=== PATIENT | male | born 1960 ===

== ENCOUNTER 2025-02-26 14:10 | Outpatient (CLI) | payer OTHER, SELFPAY ==
--- NOTE | 2025-02-26 06:00 | DI.RAD_ITS ---
Exam(s) XR PA[facility] 2V EXAM: XR PAIN [facility]IN[facility] 2V CLINICAL HISTORY: Dx: Rectal Pain TECHNIQUE: 2D and realtime digital imaging was performed. CONTRAST MATERIAL: Refer to procedure report. COMPARISON: No exams were available for comparison FINDINGS: Fluoroscopy was provided for Dr. Hernandez during the performance of a pudendal nerve blocks. Please refer to the procedure report for complete details. Ka,r=12.5 mGy IMPRESSION: RADIATION DOSE DELIVERED: 0.0 0.0 0
--- NOTE | 2025-02-26 13:20 | PDOC.PAIN_ITS ---
Date of service: 02/26/25 Time of Service: 15:14 Pain Managment Procedure Note Procedure Note Procedure Note: PUDENDAL NERVE BLOCK Preoperative diagnosis: 1. 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 Pelvic pain - R10. 2 Postoperative diagnosis: 1. 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 Pelvic pain - R10. 2 ? Location: Bilateral pudendal nerves? Sedation:? NONE ??Medication: Depo-Medrol 40 mg, bupivacaine 0.5% 4 mL, Omnipaque 0.5 mL per joint ? Estimated blood loss:? less than 2 cc ??Surgeon:? James Hernandez MD ? COMMENT: THIS WILL BE BOTH DIAGNOSTIC AND THERAPEUTIC ? Procedure Detail:? The procedure and potential risks were explained to the patient and informed written consent was obtained. The patient was escorted to the procedure room and placed in the prone position. Pillows were utilized for proper positioning and comfort. Time out was performed in the procedure room with nursing staff confirming the patient's identity, procedure to be performed, allergies, and any blood thinning or anti-platelet medications. The patient's lumbosacral area was prepped with ChloraPrep and draped in a sterile fashion. Sterile technique was maintained throughout the procedure.? Sterile gloves were used, a face mask was worn, and new single dose vials of all medications were used with the top being swabbed with alcohol and given time to dry prior to withdrawal of medication. Lidocaine 1% was used to anesthetize the skin. With fluoroscopic guidance, a 22-gauge 3.5 spinal needle was advanced onto the posteroinferior aspect of the ischial spine and then walked off to the region of the Bilateral pudendal nerves. Confirmation of position of the needle tip was obtained with injection of 0.5cc of Omnipaque 240 contrast which showed appropriate spread .? Following negative aspiration, 40mg of methylprednisolone mixed with 4 mL of bupivacaine 0.5% was injected.? The needle was gently removed. ?The patient tolerated the procedure well and was discharged home with instructions.? Permanent images saved and recorded. Plan:? Follow up prn. PAIN PRE PROCEDURE 09/13 POST PROCEDURE 09/13 COMMENT: 0 % BETTER AFTER INJECTION. This could be repeated or not better consider ganglion impar block and then neurosurgical evaluation at either [facility] or [facility]. I would be happy to discuss medication changes but possibly Suboxone would be the better option than oxycodone and allow him to lower his dose of pregabalin Coding Conscious Sedation used for procedure: No CPT Codes: Fluoroscopic guidance (non spine inj.) - 79841 ([id number] ~G) Iliohypogastric Ilioinguinal - 06052 ([id number] ~G) 50 - BILATERAL PROCEDURE [place] [address]- this was a bilateral procedure Additional Codes: Date of Service () Diagnoses: 1. 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 Pelvic pain - R10. 2
[2025-02-26 14:23] VITALS: BP 131/90; PULSE 61; RESP 19; TEMP 36.5; O2SAT 96
[2025-02-26 14:44] VITALS: PULSE 47; O2SAT 96
[2025-02-26 14:50] VITALS: PULSE 52; O2SAT 95
[2025-02-26] MEDS: Omnipaque 240 MG/ML 50 ML BTL IJ (15:02)
[2025-02-26] MEDS: Nerve Block Tray 1 EACH MC (15:02)
[2025-02-26] MEDS: Bupivacaine 0.5% Pres-Free 10 ML VIAL IJ (15:02)
[2025-02-26] MEDS: methylPREDNISolone ACETATE 40 MG/ML VIAL IJ (15:03)
== END 2025-02-26 14:11 | disposition home or self-care (01) ==
LOC: PC 14:11
PROVIDERS: Visit Provider Anesthesiology Pain Medicine
DX: G58.8 Other specified mononeuropathies (principal); R10.23 Pelvic and perineal pain bilateral
CPT/HCPCS: 64425; 64430; 72220; J0665; J1010; Q9967